=== PATIENT | male | born 1965 | race Caucasian/White ===

== ENCOUNTER 2023-01-03 08:34 | Emergency (ER) | payer BC, OTHER ==
[2023-01-03] MEDS ORDERED: Aspirin 81 MG Tab.Chew PO ONE (09:13)
[2023-01-03] MEDS: Sodium Chloride 0.9% 10 ML Syringe FLUSH PRN ×2 (09:20→09:50)
[2023-01-03 09:28] LABS: BASOPHILS ABSOLUTE AUTO 0.03 K/mm3 (0.01-0.08); BASOPHILS PERCENT AUTO 0.2 % (0.1-1.2); EOSINOPHILS ABSOLUTE AUTO 0.07 K/mm3 (0.04-0.54); EOSINOPHILS PERCENT AUTO 0.5 (0.8-7.0); HEMATOCRIT 45.3 % (40.1-51.0); IMMATURE GRAN ABSOLUTE AUTO 0.03 K/mm3 (0.00-0.10); IMMATURE GRAN PERCENT AUTO 0.2 % (<=1.0); LYMPHOCYTES ABSOLUTE AUTO 0.94 K/mm3 (1.32-3.57); MEAN CORPUSCULAR HEMOGLOBIN 29.2 pg (25.7-32.2); MEAN CORPUSCULAR HGB CONC 33.1 g/dl (32.2-35.5); MEAN CORPUSCULAR VOLUME 88.1 fl (79.0-92.2); MEAN PLATELET VOLUME 10.8 fl (9.4-12.3); MONOCYTES ABSOLUTE AUTO 1.13 K/mm3 (0.30-0.82); MONOCYTES PERCENT AUTO 8.4 % (5.3-12.2); NEUTROPHILS ABSOLUTE AUTO 11.27 K/mm3 (1.78-5.38); NEUTROPHILS PERCENT AUTO 83.7 % (34.0-67.9); PLATELET COUNT,PLT 266 K/mm3 (163-337); RED BLOOD CELL COUNT 5.14 M/mm3 (4.63-6.08); WHITE BLOOD CELL COUNT,WBC 13.47 K/mm3 (4.23-9.07)
[2023-01-03 09:35] LABS: INR 1.07; PROTHROMBIN TIME 11.4 SECONDS (9.7-12.0)
[2023-01-03] MEDS ORDERED: Sodium Chloride 0.9% 500 ML IV ONE (09:35)
[2023-01-03] MEDS ORDERED: Iopamidol 755 Mg/ML 100 ML Bottle IVPUSH ONE (09:40)
[2023-01-03 09:46] LABS: A/G RATIO 0.7 (1-2); ALBUMIN 3.3 g/dl (3.4-5.0); ANION GAP 11.4 (5-15); BILIRUBIN TOTAL 1.3 mg/dL (0.2-1.0); BUN/CREATININE RATIO 11.1 (14-18); CALCIUM 9.2 mg/dL (8.5-10.1); CREATININE 0.9 mg/dL (0.7-1.3); EST CRCL DRUG DOSING (CG) 86.56 mL/min; MAGNESIUM 1.7 mg/dL (1.8-2.4); POTASSIUM,K 4.4 mEq/L (3.5-5.1); PROTEIN TOTAL,TP 7.9 g/dl (6.4-8.2)
[2023-01-03] MEDS ORDERED: Magnesium Oxide 400 MG Tab PO ONE (11:28)
[2023-01-03] MEDS ORDERED: Doxycycline Monohydrate 100 MG Cap PO ONE (15:07)
[2023-01-03 15:28] VITALS: BP 135/85; PULSE 85
== END 2023-01-03 15:23 | disposition home or self-care (01) ==
LOC: JD.ED 08:34
DX: J18.9 Pneumonia, unspecified organism (principal); E11.9 Type 2 diabetes mellitus without complications; Z86.16 Personal history of COVID-19
CPT/HCPCS: 36415; 71045; 71275; 80053; 83735; 83880; 84484; 85025; 85610; 93005; 96360; 99285; A9270; J3490; J7030; Q9967; 99284